=== PATIENT | female | born 1990 | race Caucasian/White ===

== ENCOUNTER 2017-10-10 00:12 | Emergency (ER) | payer OTHER ==
[~2017-10-10] VITALS: Ht 157.5 cm; Wt 82.5 kg
[~2017-10-10 00:12] MED LIST: ANAPROX DS550 M1 PO; ENDOCET 5-3251 EACH PO; Flintstones PO; MOTRIN800 MG PO; PREFERA-OB P1 TABLET PO; SPRINTEC1 EACH PO
[2017-10-10 01:33] VITALS: BP 140/80
== END 2017-10-10 01:34 | disposition home or self-care (01) ==
LOC: EME 00:12
DX: T63.301A Toxic effect of unspecified spider venom, accidental (unintentional), initial encounter (principal); W57.XXXA Bitten or stung by nonvenomous insect and other nonvenomous arthropods, initial encounter; Z33.1 Pregnant state, incidental; Z3A.16 16 weeks gestation of pregnancy
CPT/HCPCS: 99281; 99284